=== PATIENT | female | born 1985 | race Caucasian/White ===

== ENCOUNTER 2017-02-17 06:48 | Inpatient (IN) | payer BC ==
[~2017-02-17] VITALS: Ht 167.6 cm; Wt 79.5 kg
[~2017-02-17 06:48] MED LIST: PRENATAL VITAMI1 T12 PO
[2017-02-19] VITALS (17 sets, daily range): BP systolic 119–145; BP diastolic 52–84; PULSE 78–96; TEMP 98–98.1
[2017-02-19 10:58] LABS: BASO % 0.2 % (0.0-2.0); EOS % 0.2 % (0-4.0); GRAN # 6.6 (1.4-6.5); HEMATOCRIT 33.9 % (37.0-47.0); HEMOGLOBIN 11.1 g/dl (12.5-16.0); LYMPH # 1.5 (1.2-3.4); LYMPH % 17.4 % (20.0-51.0); MEAN CELL VOLUME 86 fl (80.0-100.0); MEAN CORPUSCULAR HEMOGLOBIN 28 pg (27.0-31.0); MEAN CORPUSCULAR HGB CONC 33 g/dl (33.0-37.0); MEAN PLATELET VOLUME 10.5 fl (7.4-10.4); MONO # 0.6 (0.1-0.6); MONO % 6.7 % (1.7-9.3); PLATELET COUNT 238 K/mm3 (130-400); RED BLOOD COUNT 3.96 M/mm3 (4.10-5.30); REDCELL DISTRIBUTION WIDTH-CV 14.2 % (11.5-14.5); WHITE BLOOD COUNT 8.8 K/mm3 (4.8-10.8)
[2017-02-20 01:30] VITALS: BP 128/78; PULSE 74; TEMP 98
[2017-02-20 07:35] VITALS: BP 133/72; PULSE 72; TEMP 97.8
[2017-02-20 08:05] LABS: HEMATOCRIT 32.4 % (37.0-47.0); HEMOGLOBIN 10.4 g/dl (12.5-16.0)
[2017-02-20] MEDS ORDERED: PERCOCET 325 MG1 TA2 PO (08:54)
[2017-02-20] MEDS ORDERED: IBU600 MG PO (08:54)
[2017-02-20 11:40] VITALS: BP 123/74; PULSE 88; TEMP 98.6
[2017-02-20 16:55] VITALS: BP 145/72; PULSE 79; TEMP 98.2
[2017-02-20 19:00] VITALS: BP 123/81; PULSE 91; TEMP 98.3
[2017-02-21 07:45] VITALS: BP 121/64; PULSE 74; TEMP 98.1
== END 2017-02-21 11:45 | disposition home or self-care (01) | DRG 765 ==
LOC: OB 06:48 → EDSTATUS 02-20 06:47 → LDRO 02-20 16:13 → OB 02-21 11:45
PROVIDERS: Obstetrics & Gynecology
PROC: 10D00Z1 Extraction of Products of Conception, Low, Open Approach (ICD-10-PCS; principal; 2017-02-19)
DX: O34.211 Maternal care for low transverse scar from previous cesarean delivery (principal); O36.0130 Maternal care for anti-D [Rh] antibodies, third trimester, not applicable or unspecified; N85.8 Other specified noninflammatory disorders of uterus; Z3A.39 39 weeks gestation of pregnancy; Z37.0 Single live birth
CPT/HCPCS: J0690; J1885; J2270; J2370; J2405; J2590; J7120

== ENCOUNTER → 2017-03-09 | Outpatient (CLI) | payer BC ==
[~2017-03-09] MED LIST changes: +IBU600 MG PO; +PERCOCET 325 MG1 TA2 PO
== END ==
LOC: MC.RAD 14:03
DX: N63 Unspecified lump in breast (principal)

== ENCOUNTER → 2017-09-21 | Outpatient (CLI) | payer BC | LOC: MC.RAD 08:25 | DX: Z09 Encounter for follow-up examination after completed treatment for conditions other than malignant neoplasm (principal); D24.2 Benign neoplasm of left breast; N63.20 Unspecified lump in the left breast, unspecified quadrant ==

== ENCOUNTER → 2023-10-15 | Outpatient (CLI) | payer BC | LOC: MC.RAD 10:56 | DX: N63.20 Unspecified lump in the left breast, unspecified quadrant (principal) ==